=== PATIENT | female | born 1985 | race Caucasian/White ===

== ENCOUNTER 2019-02-28 05:19 | Inpatient (IN) | payer OTHER ==
[2019-02-28] MEDS ORDERED: PITOCin/NS 20 UNIT/1000ML DRIP 20,000 MILLIUNITS/1,000 ML BAG IV ONE (05:32)
[2019-02-28] MEDS ORDERED: LACTATED RINGERS 1,000 ML ONE (05:33)
[2019-02-28] MEDS ORDERED: AMPICILLIN/NS 2 GM/100 ML 2 GM/100 ML BAG IV ONE ×2 (06:21→06:22)
[2019-02-28] MEDS ORDERED: BRETHINE SUB-Q PRN ×2 (06:22→06:24)
[2019-02-28] MEDS ORDERED: XYLOCAINE 2% INFILTRATI ONE ×2 (06:22→06:24)
[2019-02-28] MEDS ORDERED: BRETHINE IVP PRN (06:24)
[2019-02-28 06:44] LABS: Basophils % (Auto) 0.3 % (0.0-1.8); Eosinophils % (Auto) 0.3 % (0.0-4.3); Hematocrit 28.3 % (30.3-42.9); Hemoglobin 8.9 gm/dl (10.1-14.3); Lymphocytes # (Auto) 1.7 K/mm3 (1.2-5.4); Lymphocytes % (Auto) 21.6 % (13.4-35.0); Mean Corpuscular HGB Conc 31 % (30-34); Monocytes # (Auto) 0.6 K/mm3 (0.0-0.8); Monocytes % (Auto) 7.6 % (0.0-7.3); Platelet Count 260 K/mm3 (140-440); Red Blood Count 4.32 M/mm3 (3.65-5.03); Red Cell Distribution Width 19.3 % (13.2-15.2)
[2019-02-28 06:46] LABS: Mean Corpuscular Volume 66 fl (79-97)
[2019-02-28] MEDS ORDERED: PITOCin/NS 30 UNIT/500ML 30 UNITS/500 ML BAG IV SCH (07:00)
[2019-02-28] MEDS ORDERED: PITOCin/NS 20 UNIT/1000ML DRIP 20 UNITS/1,000 ML BAG IV SCH (07:00)
[2019-02-28] MEDS ORDERED: LACTATED RINGERS 1,000 ML IV SCH ×2 (07:00)
--- NOTE | 2019-02-28 07:07 | History and Physical Report ---
History of Present Illness Date of examination: 02/28/19 Date of admission: 02/28/19 06:32 Chief complaint: Contractions History of present illness: 33 year old female presents to L&D in active advanced labor. Patient states she had one or 2 visits for care until 20 weeks gestation but has had no care since then. Patient speaks [place]ian. box blank machine feeder was used to obtain history. Patient states her EDC is 03/01/19. Patient reports she has had no complications during this (except for lack of care). labs and US ordered upon admission. Patient states she takes only vitamins. She denies drug or latex allergy. Only surgical history is appendectomy. 3 previous vaginal births per patient; patient was unable to tell us weights of previous babies. 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 denies: smoking, alcohol abuse, prescription drug abuse, IV drug use - Obstetrical History Expected Date of Delivery: 03/01/19 Actual Gestation: 39 Week(s) 6 Day(s) : 4 Para: 3 Hx # Term Pregnancies: 3 Number of Pregnancies: 0 Spontaneous Abortions: 0 Induced : 0 Number of Living Children: 3 Medications and Allergies Allergies Allergy/AdvReac Type Severity Reaction Status Date / Time No Known Allergies Allergy Verified 02/28/19 05:59 Active Meds: Active Medications Ephedrine Sulfate (Ephedrine Sulfate) 10 mg IV Q2M PRN PRN Reason: Hypotension Ampicillin Sodium (Ampicillin/Ns 2 Gm/100 Ml) 2 gm in 100 mls @ 100 mls/hr IV ONCE ONE; Protocol Stop: 02/28/19 07:20 Last Admin: 02/28/19 06:38 Dose: 100 mls/hr Documented by: Oxytocin/Sodium Chloride (Pitocin/Ns 20 Unit/1000ml Drip) 20 units in 1,000 mls @ 125 mls/hr IV DIRECT KULWINDER Oxytocin/Sodium Chloride (Pitocin/Ns 30 Unit/500ml) 30 units in 500 mls @ 1 mls/hr IV TITR KULWINDER; Protocol Lactated Ringer's (Lactated Ringers) 1,000 mls @ 125 mls/hr IV DIRECT KULWINDER Mineral Oil (Mineral Oil) 30 ml PO QHS PRN PRN Reason: Constipation Terbutaline Sulfate (Brethine) 0.25 mg SUB-Q ONCE PRN PRN Reason: Hyperstimulation/Hypertonicity Terbutaline Sulfate (Brethine) 0.25 mg IVP ONCE PRN PRN Reason: Hyperstimulation/Hypertonicity Review of Systems All systems: negative (contractions) - Vital Signs Vital signs: Vital Signs Temp Pulse Resp BP 97.7 F 74 18 121/68 02/28/19 05:30 02/28/19 05:30 02/28/19 05:30 02/28/19 05:30 Temp Pulse Resp BP Pulse Ox 97.7 F 92 H 18 123/72 100 02/28/19 05:30 02/28/19 07:03 02/28/19 05:30 02/28/19 06:41 02/28/19 07:03 - Physical Exam Abdomen: Positive: normal appearance, soft. Negative: distention, tenderness, guarding, rigidity Genitourinary (Female): Positive: normal external genitalia, normal perenium. Negative: perineal/vulvar lesions Vagina: Positive: normal moisture Uterus: Positive: enlarged Anus/Rectum: Positive: normal perianal skin Extremities: Positive: normal. Negative: tenderness, edema - Obstetrical FHR: category 1 Uterine Contraction Monitor Mode: External Cervical Dilatation: 9 Cervical Effacement Percentage: 100 station: -2 Uterine Contraction Pattern: Regular Uterine Contraction Intensity: Moderate Results Result Diagrams: 02/28/19 06:08 Abnormal lab results 02/28/19 Range/Units 06:08 Hgb 8.9 L (10.1-14.3) gm/dl Hct 28.3 L (30.3-42.9) % MCV 66 L (79-97) fl MCH 21 L (28-32) pg RDW 19.3 H (13.2-15.2) % [place] % (Auto) 7.6 H (0.0-7.3) % Seg Neutrophils % 70.2 H (40.0-70.0) % All other labs normal. Assessment and Plan A: at 39 weeks, 6 days gestation according to patient report. Very limited care. No records. Advanced labor, cephalic presentation. GBS unknown. P: Admit. GBS prophylaxis. Continuous EFM. labs and admission labs. US for EDC, EFW, placental location. Anticipate vaginal .
[2019-02-28 07:11] LABS: Hepatitis C Virus Antibody Non-Reactive (NonReactive)
[2019-02-28] MEDS ORDERED: SUBLIMAZE IV ONE (07:36)
[2019-02-28] MEDS: PITOCin/NS 20 UNIT/1000ML DRIP 20 UNITS/1,000 ML BAG IV SCH ×2 (08:46→10:43)
[2019-02-28] MEDS ORDERED: TYLENOL PO PRN (09:21)
[2019-02-28] MEDS ORDERED: LANSINOH TP PRN (09:21)
[2019-02-28] MEDS ORDERED: BENADRYL PO PRN (09:21)
[2019-02-28] MEDS ORDERED: TUCKS PAD TP PRN (09:21)
--- NOTE | 2019-02-28 09:26 | Procedure Note ---
OB Delivery Note - Delivery Date of Delivery: 02/28/19 Surgeon: ELTON TREVIZO Estimated blood loss: 200cc - Vaginal Delivery presentation: vertex Delivery position: OA Intrapartum events: none Delivery induction: none Delivery monitor: external FHT, external uterine Route of delivery: Delivery placenta: spontaneous Delivery cord: 3 umbilical vessels Episiotomy: none Delivery laceration: none Anesthesia: none Delivery comments: Spontaneous vaginal delivery at 08:42 of liveborn female weighing 3392 grams over intact perineum with apgars of 8/9. Thin meconium stained amniotic fluid. NICU present for delivery but baby was born vigorous and was placed skin to skin on mom's chest immediately after . Spontaneous cry and respirations. 3 vessel cord double clamped and cut. Cord blood obtained. Spontaneous delivery of intact placenta and membranes by sanders mechanism. EBL 200 cc. Pitocin to IV fluids after delivery of placenta. Fundus firm and midline. Vaginal sweep negative. Sponge count correct. Mom and baby stable.
--- NOTE | 2019-02-28 09:29 | Ultrasound Report ---
OBSTETRIC ULTRASOUND INDICATION: Delivery planning. COMPARISON: No prior relevant imaging studies are available for comparison. TECHNIQUE: Transabdominal imaging was performed. FINDINGS: Single viable intrauterine is identified. lie: Cephalic. Heart rate: 146 bpm. measurements are as follows: Biparietal diameter 8.6 cm, 34 weeks 4 days Head circumference 32.3 cm, 36 weeks 4 days Abdominal circumference 33.7 cm, 37 weeks 4 days Femur length 7.2 cm, 36 weeks 5 days Estimated birthweight at this time is 6 pounds, 12 ounces. Amniotic fluid index is 17.9cm, within normal limits. No placental abnormalities are seen. Cervix is closed measuring 4.4 cm. CONCLUSION: Single viable intrauterine currently in vertex position with estimated birthweight of 6 neftaly nds, 12 ounces at this time. Amniotic fluid index is within normal limits. Signer Name: Barry Bronson MD Signed: 02/28/2019 9:25 AM Workstation Name: [id number]
[2019-02-28] MEDS ORDERED: DULCOLAX PR PRN (10:00)
[2019-02-28] MEDS ORDERED: SODIUM CHLORIDE FLUSH SYRINGE 10 ML IV NR (10:00)
[2019-02-28] MEDS: IBUPROFEN PO SCH ×3 (11:45→22:10)
--- NOTE | 2019-02-28 12:54 | Event Note ---
Date: 02/28/19 Gush of blood reported by patient; lochia checked and was noted to be moderate. Fundus firm and midline at 1 FB below umbilicus. No clots noted. No excessive bleeding noted. Instructed patient to empty her bladder frequently. During this exam, small red abraded area noted on genitalia; may be traumatic from delivery; not bleeding and pt. states does not hurt, sting, burn, or itch. This red abraded area was not present upon admission exam or at delivery. Patient denies any history of herpes during admission history and when questioned again just now. As a precaution, herpes culture taken and sent to lab and herpes serology ordered. Surekha Peterson (pediatric practitioner) and nursery notified of this concern so that they can take appropriate precautions/measures for baby. Discussed all of this with the patient as well.
[2019-02-28] MEDS ORDERED: LACTATED RINGERS 500 ML IV ONE (21:23)
[2019-02-28] MEDS ORDERED: MINERAL OIL PO PRN (22:00)
[2019-02-28] MEDS ORDERED: MILK OF MAGNESIA PO PRN (22:00)
[2019-02-28 22:22] LABS: Hematocrit 18.9 % (30.3-42.9); Hemoglobin 5.9 gm/dl (10.1-14.3)
[2019-02-28] MEDS ORDERED: NACL 0.9% 500 ML 500 ML IV ONE (22:47)
--- NOTE | 2019-02-28 23:18 | Event Note ---
Date: 02/28/19 BPs were noted to be low and pulse rate within normal range. H&H checked; hemoglobin 5.9 and hematocrit 18.9 (down from 8.9 and 28.3 on admission). Examined patient. Patient is well appearing and talkative, NAD. Pulse regular rate and rhythm. Skin warm and dry. Answers all questions appropriately. Fundus firm and midline at 2 FB below umbilicus. No lacerations noted. Vaginal sweep revealed no clots. Lochia is small in amount. Will get US to check for retained placental fragments. Stat blood transfusion (2 units PRBCs) with H&H to follow and another unit placed on standby. Patient to stay in bed with SCDs. Notified Dr. Sampson of all of the above and he states he agrees with current management. Discussed plan of care with patient. Patient's nurse Alley instructed re: all of the above.
--- NOTE | 2019-03-01 00:21 | Ultrasound Report ---
Pelvic ultrasound complete INDICATION: Patient is approximately 19 hours . FINDINGS: There is some heterogeneous material in the lower uterine segment. There is no flow within this. This likely represents clot patient is recently . No definite retained placenta is identified. The ovaries are not seen. No free fluid is seen. IMPRESSION: No retained placenta is identified. There is some heterogeneous material in the lower uterine segment near the internal os but does not s how any flow within it. This likely represents clot. Signer Name: Saul Salas MD Signed: 03/01/2019 12:16 AM Workstation Name: [id number]
[2019-03-01] MEDS: IBUPROFEN PO SCH ×4 (04:50→21:09)
[2019-03-01 08:24] LABS: Hemoglobin 8.1 gm/dl (10.1-14.3)
[2019-03-01] MEDS: FEOSOL PO SCH ×3 (10:07→21:09)
--- NOTE | 2019-03-01 10:29 | Progress Note ---
Assessment and Plan - Patient Problems (1) Status post normal vaginal delivery Current Visit: Yes Status: Acute Plan to address problem: PPD 1 - stable Continue routine orders Anticipate discharge in 24 hours (2) Anemia due to blood loss, acute Current Visit: Yes Status: Acute Plan to address problem: Asymptomatic s/p Blood Transfusion Continue iron therapy Repeat CBC 03/02/19 Subjective - Subjective Date of service: 03/01/19 Principal diagnosis: PPD #1; s/p Interval history: see H&P, OB Delivery Procedure Note and Event Notes Patient reports: appetite normal, voiding normally, pain well controlled, ambulating normally, no dizzy ambulation Champion: doing well, nursing well Objective - Vital Signs Latest vital signs: Vital Signs Temp Pulse Resp BP BP Pulse Ox 03/01/19 08:34 98.7 F 53 L 20 102/49 100 03/01/19 05:01 98.2 F 69 18 91/47 96 03/01/19 03:24 98.7 F 61 18 107/63 97 03/01/19 03:16 98.7 F 64 18 104/69 96 03/01/19 02:46 98.4 F 60 18 101/59 97 03/01/19 02:16 98.5 F 61 18 103/59 96 03/01/19 01:46 98.5 F 65 16 90/56 96 03/01/19 01:31 98.5 F 60 18 103/58 96 03/01/19 01:26 98.6 F 71 18 96/57 96 03/01/19 01:13 98.6 F 75 18 100/62 98 03/01/19 00:43 98.5 F 65 96/66 96 03/01/19 00:13 98.6 F 68 18 94/52 97 02/28/19 23:58 98.4 F 76 18 114/53 02/28/19 20:42 98.0 F 65 16 102/46 98 02/28/19 17:42 65 90/43 02/28/19 16:30 97.9 F 59 L 18 96/34 Intake and Output 02/28/19 03/01/19 03/01/19 23:59 07:59 15:59 Intake Total 480 500 Output Total 500 Balance -20 500 Intake: Oral 480 Blood Product 0 500 Leukoreduced Red Blood 250 Cells Unit [id number] Leukoreduced Red Blood 0 250 Cells Unit [id number] Output: Urine 500 Void 500 Other: Total, Intake Amount 480 Total, Output Amount 500 # Voids Void 2 - Exam Cardiovascular: Present: Regular rate Lungs: Present: Clear to auscultation Abdomen: Present: normal appearance, soft Vulva: both: normal Uterus: Present: normal, firm, fundal height at umbilicus Extremities: Present: normal Comments: scant lochia - Labs Labs: Abnormal lab results 02/28/19 02/28/19 03/01/19 Range/Units 05:40 22:06 07:53 Hgb 5.9 L* D 8.1 L (10.1-14.3) gm/dl Hct 18.9 L* D 25.0 L D (30.3-42.9) % Crossmatch See Detail
[2019-03-02 06:46] LABS: Hematocrit 27.3 % (30.3-42.9); Hemoglobin 8.7 gm/dl (10.1-14.3)
--- NOTE | 2019-03-02 10:09 | Progress Note ---
Assessment and Plan - Patient Problems (1) Status post normal vaginal delivery Current Visit: Yes Status: Acute Plan to address problem: D/C home today F/U with office in 6 weeks for PPV (2) Anemia due to blood loss, acute Current Visit: Yes Status: Acute Plan to address problem: Asymptomatic Continue daily oral irons supplementation Iron rich diet Subjective - Subjective Date of service: 03/02/19 Principal diagnosis: PPD #2; s/p ; Anemia Interval history: See admission H & P, OB delivery summary, and PP progress notes Patient reports: appetite normal, voiding normally, pain well controlled, flatus , ambulating normally : doing well, bottle feeding (and ) Objective - Vital Signs Latest vital signs: Vital Signs Temp Pulse Resp BP 03/02/19 07:40 98.3 F 53 L 18 97/54 03/02/19 00:00 98.4 F 62 18 98/75 03/01/19 16:50 98.3 F 55 L 18 101/36 Intake and Output 03/01/19 03/02/19 03/02/19 23:59 07:59 15:59 Intake Total 540 720 Balance 540 720 Intake: Oral 240 720 Intake, Free Water 300 Other: Total, Intake Amount 120 480 # Voids Void 1 1 - Exam Breasts: Present: normal Cardiovascular: Present: Regular rate Lungs: Present: Normal air movement Abdomen: Present: soft, normal bowel sounds Uterus: Present: firm, fundal height below umbilicus (U-1) Extremities: Present: normal Deep Tendon Reflex Grade: Normal +2 - Labs Labs: Abnormal lab results 03/02/19 Range/Units 05:38 Hgb 8.7 L (10.1-14.3) gm/dl Hct 27.3 L (30.3-42.9) %
--- NOTE | 2019-03-02 10:14 | Discharge Summary ---
Providers - Providers Date of Admission: 02/28/19 06:32 Date of discharge: 03/02/19 Attending physician: WENDY CHANDRA MD Primary care physician: WENDY CHANDRA MD Hospitalization Reason for admission: active labor, IUP at term Delivery: Episiotomy: none Laceration: none Other procedures: none complications: transfusion (secondary to Hgb - 5.9) Discharge diagnosis: other (S/P ; Anemia) baby: female Hospital course: See admission H & P, OB delivery summary, and PP progress notes Condition at discharge: Stable Disposition: DC-01 TO HOME OR SELFCARE - Discharge Diagnoses (1) Status post normal vaginal delivery Status: Acute (2) Anemia due to blood loss, acute Status: Acute Plan - Provider Discharge Summary Activity: no sex for 6 weeks, no heavy lifting 4 weeks, no strenuous exercise Diet: other (Iron rich diet) Instructions: routine Additional instructions: [] Smoking cessation referral if applicable(refer to patient education folder for contact #) [] Refer to [facility]'s [facility] Booklet Call your doctor immediately for: * Fever > 100.5 * Heavy vaginal bleeding ( >1 pad per hour) * Severe persistent headache * Shortness of breath * Reddened, hot, painful area to leg or breast * Drainage or odor from incision. * Continue daily oral iron supplementation as directed - Follow up plan Follow up: DAISY KINNEY MD [Staff Physician] - 6 Weeks ([place] office address: [address] [place] [id number])
[2019-03-02 16:42] VITALS: BP 107/40
[2019-03-02] MEDS: FEOSOL PO SCH ×2 (17:22→21:30)
[2019-03-02] MEDS: IBUPROFEN PO SCH ×2 (17:23→21:31)
== END 2019-03-02 21:54 | disposition home or self-care (01) | DRG 806 ==
LOC: TRG 05:19 → LD 05:46 → TRG 06:07 → LD 06:32 → OB 11:38
PROVIDERS: ADMIT Obstetrics & Gynecology; ATTEND Obstetrics & Gynecology
PROC: 10E0XZZ Delivery of Products of Conception, External Approach (ICD-10-PCS; principal; 2019-02-28)
PROC: 30233N1 Transfusion of Nonautologous Red Blood Cells into Peripheral Vein, Percutaneous Approach (ICD-10-PCS; 2019-02-28)
DX: O77.0 Labor and delivery complicated by meconium in amniotic fluid (principal); D62 Acute posthemorrhagic anemia; Z37.0 Single live birth; Z3A.39 39 weeks gestation of pregnancy; Z90.49 Acquired absence of other specified parts of digestive tract; O90.81 Anemia of the puerperium
CPT/HCPCS: 36415; 76816; 76856; 83036; 85014; 85018; 85025; 86592; 86706; 86762; 86803; 86850; 86900; 86901; 86920; 87255; 87529; 87806; G0378; J0290; J2590; J7040; J7120; P9016